=== PATIENT | female | born 1985 | race Two or more races ===

== ENCOUNTER 2017-10-06 13:13 | Emergency (ER) | payer SELFPAY ==
[2017-10-06 13:21] VITALS: BP 118/70
--- NOTE | 2017-10-06 13:22 | ER Document Report ---
HPI - HPI Patient complains to provider of: arm rash Onset: Other - 2 days Onset/Duration: Sudden Pain Level: 3 Context: 31 yo female with sudden scaley red round rash to left upper arm yesterday, antifungal cream did not help. today has same but 4 small lesions right upper arm. No fever. No hx psoriasis or eczema. Associated Symptoms: None Exacerbated by: Denies Relieved by: Denies - ROS ROS below otherwise negative: Yes Systems Reviewed and Negative: Yes All other systems reviewed and negative Past Medical History - General Information source: Patient - Social History Smoking Status: Never Smoker Frequency of alcohol use: None Drug Abuse: None Lives with: Family Family History: Reviewed & Not Pertinent - Medical History Medical History: Negative Past Surgical History: Reports: Hx Oral Surgery - Immunizations Immunizations up to date: Yes Hx Diphtheria, Pertussis, Tetanus Vaccination: Yes Vertical Provider Document - CONSTITUTIONAL Agree With Documented VS: Yes Exam Limitations: No Limitations General Appearance: No Apparent Distress - INFECTION CONTROL TRAVEL OUTSIDE OF THE [place] IN LAST 30 DAYS: No - HEENT HEENT: Normocephalic - NECK Neck: Supple - MUSCULOSKELETAL/EXTREMETIES Musculoskeletal/Extremeties: MAEW, Non-Tender - NEURO Level of Consciousness: Awake - DERM Integumentary: Rash - left upper arm 2 round plaque scaley red lesions, borders more inflamed, similar crusted yellow scaley 4 round plaque patches on right upper arm Course - Vital Signs Vital signs: Temp Pulse Resp BP Pulse Ox 98.0 F 83 18 118/70 98 10/06/17 13:18 10/06/17 13:18 10/06/17 13:18 10/06/17 13:18 10/06/17 13:18 Discharge - Discharge Clinical Impression: inflamed plaque rash Condition: Good Disposition: HOME, SELF-CARE Instructions: Cephalexin ([facility]), Use of Diphenhydramine, Psoriasis ([facility]), Steroid Medication Additional Instructions: wash hands well see the dermattologist steroids for inflammation keflex for possible for possible secondary infection to er if worsening symptoms Prescriptions: Cephalexin Monohydrate [Keflex 500 mg Capsule] 500 mg PO QID #28 capsule Prednisone [Deltasone 10 mg Tablet] 10 mg PO ASDIR PRN #21 tablet PRN Reason: Forms: Return to Work Referrals: RENY FREEMAN DO [ACTIVE STAFF] - Follow up as needed
== END 2017-10-06 13:33 | disposition home or self-care (01) ==
LOC: ER 13:13
DX: R21 Rash and other nonspecific skin eruption (principal)
CPT/HCPCS: 99283

== ENCOUNTER 2018-01-18 13:20 | Emergency (ER) | payer SELFPAY ==
[2018-01-18 14:08] VITALS: BP 121/67
[2018-01-18] MEDS ORDERED: ACETAMINOPHEN 325 MG TABLET PO ONE (15:09)
[2018-01-18] MEDS ORDERED: ONDANSETRON 4 MG TAB.RAPDIS PO ONE (15:09)
--- NOTE | 2018-01-18 15:10 | ER Document Report ---
HPI - HPI Patient complains to provider of: Back injury Onset: This morning Onset/Duration: Sudden Quality of pain: Achy Pain Level: 3 Context: Patient states that she was rushing and fell down some stairs hitting the back of her neck on the step. Patient denies any head injury loss of consciousness or vomiting. Patient does complain of some nausea. Patient complains of neck and upper back tenderness. Associated Symptoms: Other - Neck, back pain. denies: Fever, Headache, Vomiting Exacerbated by: Movement Relieved by: Denies Similar symptoms previously: No Recently seen / treated by doctor: No - ROS ROS below otherwise negative: Yes Systems Reviewed and Negative: Yes All other systems reviewed and negative - NEURO Neurology: DENIES: Headache, Weakness - GASTROINTESTINAL Gastrointestinal: DENIES: Nausea, Patient vomiting - REPRODUCTIVE Reproductive: DENIES: : - MUSCULOSKELETAL Musculoskeletal: REPORTS: Back Pain, Neck Pain. DENIES: Extremity pain - DERM Skin Color: Normal Skin Problems: None Past Medical History - General Information source: Patient - Social History Smoking Status: Never Smoker Chew tobacco use (# tins/day): No Frequency of alcohol use: None Drug Abuse: None Occupation: Assisted care Family History: Reviewed & Not Pertinent Patient has suicidal ideation: No Patient has homicidal ideation: No - Medical History Medical History: Negative Renal/ Medical History: Denies: Hx Peritoneal Dialysis Past Surgical History: Reports: Hx Section, Hx Oral Surgery - Immunizations Immunizations up to date: Yes Hx Diphtheria, Pertussis, Tetanus Vaccination: Yes Vertical Provider Document - CONSTITUTIONAL Agree With Documented VS: Yes Exam Limitations: No Limitations General Appearance: WD/WN, No Apparent Distress - INFECTION CONTROL TRAVEL OUTSIDE OF THE [place] IN LAST 30 DAYS: No - HEENT HEENT: Atraumatic, Normal ENT Exam, Normocephalic - NECK Neck: Supple, Other - Posterior cervical tenderness C3 through 7 area, no step- off or deformity.. negative: Lymphadenopathy-Left, Lymphadenopathy-Right - RESPIRATORY Respiratory: Breath Sounds Normal, No Respiratory Distress - CARDIOVASCULAR Cardiovascular: Regular Rate, Regular Rhythm - BACK Back: Abnormal Inspection - Thoracic T1 thru 7 tenderness, no step-off or deformity. Bilateral trapezius muscle tenderness with spasm - MUSCULOSKELETAL/EXTREMETIES Musculoskeletal/Extremeties: MAEW, FROM, Non-Tender - NEURO Level of Consciousness: Awake, Alert, Appropriate Motor/Sensory: No Motor Deficit. negative: Weak Motor Strength RUE, Weak Motor Strength LUE - DERM Integumentary: Warm, Dry, No Rash Course - Re-evaluation Re-evalutation: 01/18/18 15:44 The patient presents with back pain without signs of spinal cord compression, cauda equina syndrome, infection, aneurysm, or other serious etiology. The patient is neurologically intact. Given the extremely risk of these diagnoses further testing and evaluation for these possibilities does not appear to be indicated at this time. Patient has been instructed to return if the symptoms worsen or change in any way. - Vital Signs Vital signs: Temp Pulse Resp BP Pulse Ox 98.5 F 92 16 121/67 100 01/18/18 14:00 01/18/18 14:00 01/18/18 14:00 01/18/18 14:00 01/18/18 14:00 - Diagnostic Test Radiology reviewed: Reports reviewed Discharge - Discharge Clinical Impression: Fall Qualifiers: Encounter type: initial encounter Qualified Code(s): W19.XXXA - Unspecified fall, initial encounter Cervical strain, acute Qualifiers: Encounter type: initial encounter Qualified Code(s): S16.1XXA - Strain of muscle, fascia and tendon at neck level, initial encounter Upper back strain Qualifiers: Encounter type: initial encounter Qualified Code(s): S29.012A - Strain of muscle and tendon of back wall of thorax, initial encounter Condition: Stable Disposition: HOME, SELF-CARE Instructions: Ice Packs ([facility]), Oral Narcotic Medication ([facility]), Upper Back Strain ([facility]), Warm Packs ([facility]) Additional Instructions: Return immediately for any new or worsening symptoms Followup with your primary care provider, call tomorrow to make a followup appointment Prescriptions: Cyclobenzaprine HCl [Flexeril 10 Mg Tablet] 10 mg PO TID #15 tablet Naproxen [Naprosyn 250 Nmg Tablet] 1 tab PO BID #14 tablet Forms: Return to Work Referrals: MARIS WATK[facility] FOR SURGERY ([facility]) [Provider Group] - Follow up as needed
--- NOTE | 2018-01-18 15:31 | RADIOLOGY REPORT (SQ) ---
EXAM DESCRIPTION: T SPINE AP/LAT COMPLETED DATE/TIME: 01/18/2018 3:22 pm REASON FOR STUDY: fall downstairs COMPARISON: None. NUMBER OF VIEWS: Two views. TECHNIQUE: AP and lateral radiographic images acquired of the thoracic spine. LIMITATIONS: None. FINDINGS: MINERALIZATION: Normal. ALIGNMENT: Normal. No scoliosis. VERTEBRAE: No acute fracture. DISCS: Multilevel disc space narrowing with osteophytes. HARDWARE: None in the spine. MEDIASTINUM AND SOFT TISSUES: Normal heart size and aortic contour. No soft tissue abnormality. VISUALIZED LUNG AMAYA: Clear. OTHER: No other significant finding. IMPRESSION: No acute findings. TECHNICAL DOCUMENTATION: JOB ID: [id number] [employer]- All Rights Reserved Reading location - IP/workstation name: [email or web address]
--- NOTE | 2018-01-18 15:43 | RADIOLOGY REPORT (SQ) ---
EXAM DESCRIPTION: CT CERVICAL SPINE WITHOUT COMPLETED DATE/TIME: 01/18/2018 3:28 pm REASON FOR STUDY: fall downstairs COMPARISON: None. TECHNIQUE: Axial images acquired through the cervical spine without intravenous contrast. Images re viewed with lung, soft tissue and bone windows. Reconstructed coronal and sagittal MPR images review ed. Images stored on PACS. All CT scanners at this facility use dose modulation, iterative reconstruction, and/or weight based d osing when appropriate to reduce radiation dose to as low as reasonably achievable (ALARA). [facility]: Dose Right [facility]: CareDose [facility]: Dose Right [facility]: Teradose 4D [facility]: Smart [employer] RADIATION DOSE: CT Rad equipment meets quality standard of care and radiation dose reduction techniq ues were employed. CTDIvol: 19.7 mGy. DLP: 433 mGy-cm. mGy. LIMITATIONS: None. FINDINGS: ALIGNMENT: Anatomic. MINERALIZATION: Normal. VERTEBRAL BODIES: No fractures or dislocation. DISCS: No significant disc disease. FACETS, LATERAL MASSES, POSTERIOR ELEMENTS: No fractures. No dislocation. No acute findings. HARDWARE: None in the spine. VISUALIZED RIBS: No fractures. LUNG APICES AND SOFT TISSUES: No significant or acute findings. OTHER: No other significant finding. IMPRESSION: NO ACUTE OR SIGNIFICANT FINDINGS IN THE CERVICAL SPINE. TECHNICAL DOCUMENTATION: JOB ID: [id number] Quality ID # [id number]: Final reports with documentation of one or more dose reduction techniques (e.g., Au tomated exposure control, adjustment of the mA and/or kV according to patient size, use of iterative reconstruction technique) 2010 [employer]- All Rights Reserved Reading location - IP/workstation name: [email or web address]
[2018-01-18] MEDS ORDERED: LIDOCAINE 5% (700 MG) TRANSDERMAL ADH..PATCH TP ONE (15:49)
== END 2018-01-18 16:04 | disposition home or self-care (01) ==
LOC: ER 13:20
DX: S16.1XXA Strain of muscle, fascia and tendon at neck level, initial encounter (principal); S29.012A Strain of muscle and tendon of back wall of thorax, initial encounter; W10.9XXA Fall (on) (from) unspecified stairs and steps, initial encounter; M54.2 Cervicalgia; M62.830 Muscle spasm of back; Y99.0 Civilian activity done for income or pay
CPT/HCPCS: 99284; 72070; 72125; S0119